=== PATIENT | female | born 1960 | race African-American/Black ===

== ENCOUNTER → 2022-10-02 | Outpatient (CLI) | payer OTHER ==
[~2022-10-02] VITALS: Ht 180.3 cm; Wt 116.0 kg
[~2022-10-02] MED LIST: CATAPRES 0.1MG0.1 MG PO; COREG 25MG25 MG/TAB PO; CYMBALTA 30MG30 MG PO; DIOVAN320 MG PO; HYDRODIURIL50 MG PO; KLOR-CON SPRIN10 MEQ PO; LIPITOR20 MG PO; MASON NATURAL2000 IU PO
[2022-10-02 07:18] VITALS: BP 137/85; PULSE 78; TEMP 98.6
--- NOTE | 2022-10-02 08:13 | NUR ---
DR MICHELE CAME AND SPOKE TO THE PATIENT. THE AREA IN THE LUNG IS GETTING SMALLER AND SO THE LUNG BX IS CANCELLED
== END ==
LOC: COL.RAD 07:00
DX: Z01.89 Encounter for other specified special examinations (principal); R91.1 Solitary pulmonary nodule

== ENCOUNTER → 2022-10-05 | Outpatient (CLI) | payer OTHER ==
[~2022-10-05] VITALS: Ht 180.3 cm; Wt 116.4 kg
[2022-10-05 09:54] VITALS: BP 137/87; PULSE 74; TEMP 98
[2022-10-05 11:12] VITALS: BP 136/84; PULSE 67
== END ==
LOC: COL.RAD 09:33
DX: Z01.89 Encounter for other specified special examinations (principal); E04.1 Nontoxic single thyroid nodule

== ENCOUNTER → 2022-11-09 | Outpatient (CLI) | payer OTHER | LOC: MC.RAD 10:15 | DX: Z12.31 Encounter for screening mammogram for malignant neoplasm of breast (principal) ==

== ENCOUNTER → 2023-12-17 | Outpatient (CLI) | payer OTHER | LOC: MC.RAD 14:30 | DX: Z12.31 Encounter for screening mammogram for malignant neoplasm of breast (principal) ==